=== PATIENT | male | born 1970 | race Caucasian/White ===

== ENCOUNTER 2021-03-20 17:00 | Outpatient (RCR) | payer BC, SELFPAY ==
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
--- NOTE | 2021-03-20 19:27 | HP.PTDCSUM ---
It has been my pleasure to treat MAX ESTEVEZ referred by Dr. Zachary Khoury DC, with the diagnosis of cervical strain for a total of 11 visit(s). Discharge Date: 03/20/21 Please see the following information for a summary of their discharge status. Subjective: Pt reports that his neck hurts a little more today because he has been looking down a lot. He feels like it is getting better overall. c-spine pain Pain Intensity (Out of 10): 5 % Improvement: 80 Objective/Function: Pt has approx 75% ext ROM and no longer deviates with neck extension. His upper trap and occiput remain slight tightness. Posture is good Goal 1:: I HEP Goal 2:: Decrease freq of overall BATES to 1X or less in a week Goal Progress: Goal Met Goal 3:: Increase c-spine AROM (especially extension as at time of eval pt had increase pain with ext and only 50 % normal ROM with increase veering with the ROM to the R). Goal Progress: Goal Met Goal 4:: Decrease overall c-spine musculature tightness by 50% Goal Progress: Goal Met Plan: DC PT back to referral DR Discharge Comments: DC PT to physician referral If there are questions or concerns regarding this patient's physical therapy, please feel free to call me at [phone]. Thank you for the referral of this patient. Sincerely, Heena Skinner, FLY Balance/Gait/Functional tests - Balance/Special Test Scores Oswestry Neck Score: 15
== END 2021-03-20 19:00 | disposition home or self-care (01) ==
LOC: PT 17:00
PROVIDERS: Referring Provider Chiropractor; Visit Provider Chiropractor
DX: S16.1XXD Strain of muscle, fascia and tendon at neck level, subsequent encounter (principal)
CPT/HCPCS: 97012; 97035; 97140; 97161